=== PATIENT | female | born 1965 | race Caucasian/White ===

== ENCOUNTER 2016-06-15 14:32 | Outpatient (CLI) | payer OTHER ==
[2012-07-29 06:54] VITALS: BP 135/78
== END 2016-06-15 14:33 ==
LOC: LAB 14:32
PROVIDERS: ATTEND Family Medicine
DX: Z51.81 Encounter for therapeutic drug level monitoring (principal); Z79.01 Long term (current) use of anticoagulants; D68.59 Other primary thrombophilia
CPT/HCPCS: 36415; 85610

== ENCOUNTER 2016-06-28 16:00 | Outpatient (CLI) | payer OTHER ==
[2012-07-29 06:54] VITALS: BP 135/78
== END 2016-06-28 16:10 ==
LOC: LAB 16:00
PROVIDERS: ATTEND Family Medicine
DX: Z51.81 Encounter for therapeutic drug level monitoring (principal); Z79.01 Long term (current) use of anticoagulants; D68.59 Other primary thrombophilia
CPT/HCPCS: 36415; 85610

== ENCOUNTER 2016-08-07 16:40 | Outpatient (CLI) | payer OTHER ==
[2012-07-29 06:54] VITALS: BP 135/78
== END 2016-08-07 16:45 | disposition home or self-care (01) ==
LOC: LAB 16:40
PROVIDERS: ATTEND Family Medicine
DX: Z79.01 Long term (current) use of anticoagulants (principal); D68.59 Other primary thrombophilia
CPT/HCPCS: 36415; 85610

== ENCOUNTER 2016-12-13 13:53 | Outpatient (CLI) | payer OTHER ==
[2012-07-29 06:54] VITALS: BP 135/78
== END 2016-12-13 13:54 ==
LOC: LAB 13:53
PROVIDERS: ATTEND Family Medicine
DX: D68.59 Other primary thrombophilia (principal)
CPT/HCPCS: 36415; 85610